=== PATIENT | male | born 1950 | race African-American/Black ===

== ENCOUNTER → 2017-06-19 | Outpatient (CLI) | payer OTHER ==
--- NOTE | 2017-06-19 16:42 | PCVCIMAG ---
EXAM: BILATERAL LOWER EXTREMITY ARTERIAL DUPLEX INDICATION: Peripheral Arterial Disease. Leg pain. FINDINGS: Right Leg: Satisfactory arterial waveforms in the common femoral and profunda femoral artery and throughout the superficial femoral artery and popliteal artery without significant stenosis. Occlusion the mid/distal anterior tibial artery. The peroneal artery and posterior tibial artery are patent. Left Leg: Satisfactory arterial waveforms in the common femoral and profunda femoral arteries and in the superficial femoral and popliteal arteries without significant stenosis. Mild stenosis proximal anterior tibial artery. The peroneal artery and posterior tibial arteries are patent. IMPRESSION: Occlusion of the mid/distal right anterior tibial artery. Mild stenosis proximal left anterior tibial artery. Otherwise no flow-limiting stenosis seen in either lower extremity. LOC:[id number]
== END | disposition home or self-care (01) ==
LOC: PCVCIMAG 01:30
PROVIDERS: ATTEND Nuclear Medicine Nuclear Cardiology
DX: I77.1 Stricture of artery (principal); I70.202 Unspecified atherosclerosis of native arteries of extremities, left leg; L97.909 Non-pressure chronic ulcer of unspecified part of unspecified lower leg with unspecified severity
CPT/HCPCS: 93925